=== PATIENT | male | born 1965 | race Caucasian/White ===

== ENCOUNTER 2017-10-27 12:37 | Emergency (ER) | payer OTHER ==
[~2017-10-27] VITALS: Ht 177.8 cm; Wt 72.2 kg
[~2017-10-27 12:37] MED LIST: LORT5TAB PO; MELO15TA2 PO; TAB-TAB PO
[2017-10-27 12:52] VITALS: BP 163/101; PULSE 66; RESP 16; TEMP 97.9; O2SAT 100
--- NOTE | 2017-10-27 13:06 | PD ---
HPI Chief Complaint: Hypertension Time Seen by Provider: 12:54 Travel History International Travel<30 days: No Contact w/Intl Traveler<30days: No Traveled to known affect area: No History of Present Illness HPI This 52-year-old male had an episode where his heart was beating fast and he felt lightheaded. He thought he might pass out but he did not he had a second episode on the way to the hospital. He has been having some tremors in the last few days. He is on no medications. He does not have a history of hypertension. He is usually borderline when he gets checked. He has no history of diabetes. Admits to drinking scotch. He is under a lot of stress at work. [employer] Social History Alcohol Use: Yes ([employer] [facility]) Tobacco Use: No Substance Use: No Allergies-Medications (Allergen,Severity, Reaction): Coded Allergies: penicillin G (Unverified Allergy, Severe, RASH, 10/27/17) Reported Meds & Prescriptions Reported Meds & Active Scripts Active Lortab 5/500 (Acetaminophen/Hydrocodone Bitart) 5 Mg/500 Mg Tab 1 Tab PO Q6HPRN PAIN NEEDED FOR PAIN Mobic (Meloxicam) 15 Mg Tab 1 Tab PO DAILYPRN NEEDED FOR PAIN Reported Multivitamin (Multivitamins) 1 Tab Tab 1 Tab PO DAILY Review of Systems General / Constitutional: No: Fever, Chills Eyes: No: Diploplia, Blurred Vision HENT: Positive: Lightheadedness, No: Headaches, Vertigo Cardiovascular: Positive: Palpitations, No: Chest Pain or Discomfort Respiratory: No: Cough, Shortness of Breath Gastrointestinal: No: Nausea, Vomiting Genitourinary: No: Urgency, Frequency Musculoskeletal: No: Myalgias, Arthralgias Skin: No Rash Neurologic: Positive: Weakness Hematologic/Lymphatic: No: Easy Bruising Physical Exam Narrative GENERAL: Well-developed male. Initial blood pressure 160/100 SKIN: Focused skin assessment warm/dry. HEAD: Atraumatic. Normocephalic. EYES: Pupils equal and round. No scleral icterus. No injection or drainage. ENT: No nasal bleeding or discharge. Mucous membranes pink and moist. NECK: Trachea midline. No JVD. CARDIOVASCULAR: Regular rate and rhythm. No murmur appreciated. RESPIRATORY: No accessory muscle use. Clear to auscultation. Breath sounds equal bilaterally. GASTROINTESTINAL: Abdomen soft, non-tender, nondistended. Hepatic and splenic margins not palpable. MUSCULOSKELETAL: No obvious deformities. No clubbing. No cyanosis. No edema. NEUROLOGICAL: Awake and alert. No obvious cranial nerve deficits. Motor grossly within normal limits. Normal speech. PSYCHIATRIC: Appropriate mood and affect; insight and judgment normal. Data Data Last Documented VS Vital Signs Date Time Temp Pulse Resp B/P (MAP) Pulse Ox O2 Delivery O2 Flow Rate FiO2 10/27/17 12:52 97.9 66 16 163/101 (121) 100 Orders Orders Electrocardiogram (10/27/17 13:03) Complete Blood Count With Diff (10/27/17 13:03) Comprehensive Metabolic Panel (10/27/17 13:03) Troponin I (10/27/17 13:03) Magnesium (Mg) (10/27/17 13:03) Labs Laboratory Tests Test 10/27/17 13:13 White Blood Count 4.4 TH/MM3 Red Blood Count 4.45 MIL/MM3 Hemoglobin 14.4 GM/DL Hematocrit 42.7 % Mean Corpuscular Volume 96.1 FL Mean Corpuscular Hemoglobin 32.3 PG Mean Corpuscular Hemoglobin Concent 33.6 % Red Cell Distribution Width 12.0 % Platelet Count 234 TH/MM3 Mean Platelet Volume 7.8 FL Neutrophils (%) (Auto) 57.4 % Lymphocytes (%) (Auto) 26.7 % Monocytes (%) (Auto) 12.9 % Eosinophils (%) (Auto) 1.9 % Basophils (%) (Auto) 1.1 % Neutrophils # (Auto) 2.5 TH/MM3 Lymphocytes # (Auto) 1.2 TH/MM3 Monocytes # (Auto) 0.6 TH/MM3 Eosinophils # (Auto) 0.1 TH/MM3 Basophils # (Auto) 0.0 TH/MM3 CBC Comment DIFF FINAL Differential Comment Blood Urea Nitrogen 16 MG/DL Creatinine 0.99 MG/DL Random Glucose 104 MG/DL Total Protein 8.2 GM/DL Albumin 4.2 GM/DL Calcium Level 9.8 MG/DL Magnesium Level 2.4 MG/DL Alkaline Phosphatase 71 U/L Aspartate Amino Transf (AST/SGOT) 29 U/L Alanine Aminotransferase (ALT/SGPT) 31 U/L Total Bilirubin 1.3 MG/DL Sodium Level 135 MEQ/L Potassium Level 3.9 MEQ/L Chloride Level 100 MEQ/L Carbon Dioxide Level 28.1 MEQ/L Anion Gap 7 MEQ/L Estimat Glomerular Filtration Rate 79 ML/MIN Troponin I LESS THAN 0.02 NG/ML MDM Medical Decision Making Medical Screen Exam Complete: Yes Emergency Medical Condition: Yes Medical Record Reviewed: Yes Differential Diagnosis Differential includes dysrhythmia, electrolyte imbalance, hypokalemia Narrative Course Elect lites are normal. EKG shows normal sinus rhythm. Troponin is normal. During a period of observation his blood pressure has come down remains borderline elevated around 140/90. I prescribed the lisinopril and have recommended that he keep a log of his blood pressures and follow-up with his own medical doctor. If he remains elevated he should initiate the lisinopril at one per day Diagnosis Primary Impression: Hypertension Scripts Lisinopril (Lisinopril) 20 Mg Tab 20 MG PO DAILY, #30 TAB 0 Refills Prov: Kamar Palacio MD 10/27/17 Disposition: 01 DISCHARGE HOME Condition: Stable Kamar Palacio MD Oct 27, 2017 13:06
[2017-10-27 13:21] LABS: AUTOMATED NEUTROPHIL # 2.5 TH/MM3 (1.8-7.7); BASOPHIL % 1.1 % (0.0-2.0); EOSINOPHIL # 0.1 TH/MM3 (0-0.4); EOSINOPHIL % 1.9 % (0.0-4.0); HEMATOCRIT 42.7 % (39.0-51.0); HEMOGLOBIN 14.4 GM/DL (13.0-17.0); LYMPH % 26.7 % (9.0-44.0); LYMPHOCYTE # 1.2 TH/MM3 (1.0-4.8); MEAN CELL VOLUME 96.1 FL (80.0-100.0); MEAN CORPUSCULAR HEMOGLOBIN 32.3 PG (27.0-34.0); MEAN CORPUSCULAR HGB CONC 33.6 % (32.0-36.0); MEAN PLATELET VOLUME 7.8 FL (7.0-11.0); MONO % 12.9 % (0.0-8.0); MONOCYTE # 0.6 TH/MM3 (0-0.9); NEUT % 57.4 % (16.0-70.0); PLATELET COUNT 234 TH/MM3 (150-450); RED BLOOD COUNT 4.45 MIL/MM3 (4.50-5.90); WHITE BLOOD COUNT 4.4 TH/MM3 (4.0-11.0)
[2017-10-27 13:34] LABS: CHLORIDE 100 MEQ/L (98-107); SODIUM (NA) 135 MEQ/L (136-145)
[2017-10-27 13:37] LABS: CALCIUM 9.8 MG/DL (8.5-10.1)
[2017-10-27 13:38] LABS: ALBUMIN 4.2 GM/DL (3.4-5.0); BICARBONATE 28.1 MEQ/L (21.0-32.0); BLOOD UREA NITROGEN 16 MG/DL (7-18); GLUCOSE,RANDOM 104 MG/DL (74-106); MAGNESIUM 2.4 MG/DL (1.5-2.5)
[2017-10-27 13:41] LABS: ALT (GPT) 31 U/L (12-78); AST (GOT) 29 U/L (15-37); CREATININE 0.99 MG/DL (0.60-1.30); GLOMERULAR FILTRATION RATE 79 ML/MIN (>89)
[2017-10-27 13:42] LABS: TOTAL BILIRUBIN ADULT 1.3 MG/DL (0.2-1.0); TOTAL PROTEIN 8.2 GM/DL (6.4-8.2)
[2017-10-27 13:44] LABS: ALKALINE PHOSPHATASE 71 U/L (45-117)
[2017-10-27 13:46] LABS: TROPONIN I LESS THAN 0.02 NG/ML (0.02-0.05)
[2017-10-27 14:24] VITALS: BP 154/88; PULSE 64; O2SAT 98
[2017-10-27] MEDS ORDERED: LISI-515 PO (14:25)
--- NOTE | 2017-10-28 11:31 | EKG ---
Date Performed: 10/27/2017 Time Performed: 13:15:03 PTAGE: 52 years EKG: SINUS BRADYCARDIA POSSIBLE RIGHT VENTRICULAR CONDUCTION DELAY NONSPECIFIC T-WAVE ABNORMALIT Y BORDERLINE ECG NO PREVIOUS TRACING DOCTOR: Roger Montez Interpretating Date/Time 10/28/2017 11:28:26
== END 2017-10-27 14:47 | disposition home or self-care (01) ==
LOC: PHED 12:37
DX: I10 Essential (primary) hypertension (principal); R00.1 Bradycardia, unspecified; R94.31 Abnormal electrocardiogram [ECG] [EKG]
CPT/HCPCS: 80053; 83735; 84484; 85025; 93005; 99284